=== PATIENT | male | born 1990 | race Caucasian/White ===

== ENCOUNTER 2017-04-28 19:21 | Emergency (ER) | payer OTHER ==
[~2017-04-28] VITALS: Ht 177.8 cm; Wt 84.3 kg
[~2017-04-28 19:21] MED LIST: CYCL5TAB PO; DICL75 PO
[2017-04-28 19:53] VITALS: BP 120/87; PULSE 87; RESP 20; TEMP 97.9; O2SAT 98
--- NOTE | 2017-04-28 20:53 | PD ---
HPI Chief Complaint: GI Complaint Time Seen by Provider: 20:43 Travel History International Travel<30 days: No Contact w/Intl Traveler<30days: No Traveled to known affect area: No History of Present Illness HPI 27yo M with no significant PMH presents to the ED with c/o nonbloody vomiting and nonbloody diarrhea for 3 days. Pt also with nasal congestion, and cough. Pt is a cig smoker. Said he had fever of 103F yesterday but did not take any antipyretic. Denies any chest pain, sob, abdominal pain, urinary complaint, testicular pain, focal weakness or numbness. PFSH Past Medical History Diminished Hearing: No Social History Alcohol Use: Yes (6 PACK PERDAY) Tobacco Use: No (QUIT, 04/2010) Substance Use: No Allergies-Medications (Allergen,Severity, Reaction): Coded Allergies: No Known Allergies (Verified Adverse Reaction, Unknown, 04/28/17) Reported Meds & Prescriptions Reported Meds & Active Scripts Active Review of Systems Except as stated in HPI: all other systems reviewed are Neg Physical Exam Narrative GENERAL: 27yo M in mild distress. SKIN: Focused skin assessment warm/dry. HEAD: Atraumatic. Normocephalic. EYES: Pupils equal and round. No scleral icterus. No injection or drainage. ENT: Throat: Clear. NECK: Trachea midline. No JVD. CARDIOVASCULAR: Regular rate and rhythm. No murmur appreciated. RESPIRATORY: No accessory muscle use. Clear to auscultation. Breath sounds equal bilaterally. GASTROINTESTINAL: Abdomen soft, non-tender, nondistended. No rebound tenderness or guarding. MUSCULOSKELETAL: No obvious deformities. No clubbing. No cyanosis. No edema. NEUROLOGICAL: Awake and alert. No obvious cranial nerve deficits. Motor grossly within normal limits. Normal speech. PSYCHIATRIC: Appropriate mood and affect; insight and judgment normal. Data Data Last Documented VS Vital Signs Date Time Temp Pulse Resp B/P (MAP) Pulse Ox O2 Delivery O2 Flow Rate FiO2 04/28/17 19:53 97.9 87 20 120/87 (98) 98 Orders Orders Influenzae A/B Antigen (04/28/17 20:49) Complete Blood Count With Diff (04/28/17 20:49) Basic Metabolic Panel (Bmp) (04/28/17 20:49) Ondansetron Inj (Zofran Inj) (04/28/17 21:00) Sodium Chlor 0.9% 1000 Ml Inj (Ns 1000 M (04/28/17 21:00) Labs Laboratory Tests Test 04/28/17 21:06 White Blood Count 5.4 TH/MM3 Red Blood Count 4.56 MIL/MM3 Hemoglobin 13.3 GM/DL Hematocrit 41.0 % Mean Corpuscular Volume 89.8 FL Mean Corpuscular Hemoglobin 29.2 PG Mean Corpuscular Hemoglobin Concent 32.5 % Red Cell Distribution Width 12.0 % Platelet Count 156 TH/MM3 Mean Platelet Volume 9.4 FL Neutrophils (%) (Auto) 56.3 % Lymphocytes (%) (Auto) 30.8 % Monocytes (%) (Auto) 10.6 % Eosinophils (%) (Auto) 1.8 % Basophils (%) (Auto) 0.5 % Neutrophils # (Auto) 3.0 TH/MM3 Lymphocytes # (Auto) 1.7 TH/MM3 Monocytes # (Auto) 0.6 TH/MM3 Eosinophils # (Auto) 0.1 TH/MM3 Basophils # (Auto) 0.0 TH/MM3 CBC Comment DIFF FINAL Differential Comment Blood Urea Nitrogen 13 MG/DL Creatinine 0.95 MG/DL Random Glucose 89 MG/DL Calcium Level 8.0 MG/DL Sodium Level 139 MEQ/L Potassium Level 3.9 MEQ/L Chloride Level 106 MEQ/L Carbon Dioxide Level 26.0 MEQ/L Anion Gap 7 MEQ/L Estimat Glomerular Filtration Rate 94 ML/MIN MDM Medical Decision Making Medical Screen Exam Complete: Yes Emergency Medical Condition: Yes Differential Diagnosis Viral gastroenteritis vs. influenza Narrative Course 27yo M with vomiting and diarrhea as well as cough and congestion. However, pt has no abdominal pain and normal vital signs. Labs reviewed, no leukocytosis. BMP unremarkable. Influenza negative. Pt given zofran and NS IVF and reevaluated at bedside. Said he feels better. Tolerating PO. Return precautions given. Diagnosis Primary Impression: Gastroenteritis Patient Instructions: General Instructions Departure Forms: Tests/Procedures Additional Instructions: Please follow up with your primary care physician in 2-3 days. Return to the ED if symptoms worsen. Med/Other Pt SpecificInfo: No Change to Meds Disposition: 01 DISCHARGE HOME Condition: Stable Erin Tong DO Apr 28, 2017 20:53
[2017-04-28] MEDS ORDERED: SODIUM CHLOR 0.9% 1000 ML INJ 1,000 ML IV ONE (21:00)
[2017-04-28] MEDS ORDERED: ONDANSETRON HCL 4 MG/2 ML VIAL IV PUSH ONE (21:00)
[2017-04-28 21:37] LABS: BASOPHIL % 0.5 % (0.0-2.0); CREATININE 0.95 MG/DL (0.60-1.30); EOSINOPHIL # 0.1 TH/MM3 (0-0.4); EOSINOPHIL % 1.8 % (0.0-4.0); HEMOGLOBIN 13.3 GM/DL (13.0-17.0); LYMPH % 30.8 % (9.0-44.0); LYMPHOCYTE # 1.7 TH/MM3 (1.0-4.8); MEAN CELL VOLUME 89.8 FL (80.0-100.0); MEAN CORPUSCULAR HEMOGLOBIN 29.2 PG (27.0-34.0); MEAN CORPUSCULAR HGB CONC 32.5 % (32.0-36.0); MEAN PLATELET VOLUME 9.4 FL (7.0-11.0); MONO % 10.6 % (0.0-8.0); MONOCYTE # 0.6 TH/MM3 (0-0.9); NEUT % 56.3 % (16.0-70.0); PLATELET COUNT 156 TH/MM3 (150-450); RED BLOOD COUNT 4.56 MIL/MM3 (4.50-5.90); WHITE BLOOD COUNT 5.4 TH/MM3 (4.0-11.0)
[2017-04-28 21:45] VITALS: BP 116/64; PULSE 70; RESP 16; O2SAT 99
[2017-04-28 22:53] VITALS: BP 110/59
== END 2017-04-28 22:56 | disposition home or self-care (01) ==
LOC: PHED 19:21
DX: K52.9 Noninfective gastroenteritis and colitis, unspecified (principal); R09.81 Nasal congestion; R05 Cough; R50.9 Fever, unspecified; Z72.0 Tobacco use
CPT/HCPCS: 80048; 85025; 87804; 96361; 96374; 99284; J2405; J7030